=== PATIENT | male | born 1995 | race Two or more races ===

== ENCOUNTER 2018-09-23 02:40 | Emergency (ER) | payer SELFPAY ==
[~2018-09-23 02:40] MED LIST: DIPH-740 PO; depression med
--- NOTE | 2018-09-23 02:51 | ER Report ---
History and Physical Time Seen By MD: 02:51 Hx. of Stated Complaint: PT REPORTS RIGHT SIDED ABDOMINAL PAIN THAT STARTED AROUND 21:40 ABOUT 30 MINUTES AFTER EATING CHICKEN WINGS. HPI/ROS CHIEF COMPLAINT: Epigastric pain, vomiting HISTORY OF PRESENT ILLNESS: 22-year-old male presents to the ER complaining of severe epigastric and right upper quadrant pain and vomiting for several hours. Patient ate hot wings and then became very sick. She notes no diarrhea. Patient describes 9/10 epigastric burning. She took ranitidine without improvement at home. REVIEW OF SYSTEMS: Respiratory: No cough, no dyspnea. Cardiovascular: No chest pain, no palpitations. Gastrointestinal: As above Musculoskeletal: No back pain. Allergies: Coded Allergies: aspirin (Verified Allergy, Intermediate, HIVES, 09/23/18) Home Meds Active Scripts Promethazine Hcl (PROMETHAZINE HCL) 25 Mg Tablet, 25 MG PO Q6H PRN for NAUSEA/VOMITING, #14 TAB Prov:AWILDARAYRAY Mary DO 09/23/18 Ondansetron 4 Mg Odt (ONDANSETRON 4 MG ODT) 4 Mg Tab.rapdis, 4 MG PO Q6H PRN for NAUSEA/VOMITING, #10 TAB Prov:AWILDARAYRAY Hernandez DO 09/23/18 Diphenhydramine Hcl (BENADRYL) 25 Mg Capsule, 25 MG PO Q6-8H, #20 CAPSULE TAKE 1 CAPSULE BY MOUTH EVERY 6 TO 8 HOURS Prov:DEANA BOWEN DO 02/13/15 Reported Medications [depression med] No Conflict Check 02/13/15 Reviewed Nurses Notes: Yes Old Medical Records Reviewed: Yes Hx Smoking: No Smoking Status: Never Smoker Exposure to Second Hand Smoke?: No Constitutional Vital Sign - Last 24 Hours 09/23/18 09/23/18 09/23/18 09/23/18 02:46 02:48 03:00 03:10 Temp 99.0 Pulse 84 97 Resp 16 B/P (MAP) 140/104 140/104 (116) 157/97 (117) Pulse Ox 96 94 O2 Delivery Room Air 09/23/18 09/23/18 09/23/18 09/23/18 03:25 03:30 03:40 04:00 Pulse 104 92 B/P (MAP) 150/66 (94) 141/126 (131) Pulse Ox 96 93 5/809/23/18 09/23/18 09/23/18 04:10 04:25 04:30 04:45 Pulse 93 63 B/P (MAP) 135/70 (91) Pulse Ox 100 99 09/23/18 09/23/18 09/23/18 09/23/18 05:00 05:15 05:20 05:30 Pulse 84 72 75 B/P (MAP) 135/78 (97) 123/76 (92) Pulse Ox 98 98 98 09/23/18 09/23/18 09/23/18 09/23/18 05:35 05:50 05:55 06:00 Pulse 79 83 87 B/P (MAP) 113/78 (90) Pulse Ox 96 95 95 09/23/18 06:10 Pulse 82 Pulse Ox 95 Intake and Output 09/22/18 09/22/18 09/23/18 15:00 23:00 07:00 Intake Total 1000 ml Balance 1000 ml Physical Exam General Appearance: The patient is alert, has no immediate need for airway protection and no current signs of toxicity. Moderate distress. Vital signs stable, afebrile, pulse ox normal HEENT: Pupils equal and round no injection. Oropharynx with moderate erythema Respiratory: Chest is non tender, lungs are clear to auscultation. Cardiac: regular rate and rhythm Gastrointestinal: Abdomen is soft and non tender, no masses, bowel sounds normal. Musculoskeletal: Neck: Neck is supple and non tender. Extremities have full range of motion and are non tender. Skin: No rashes or lesions. DIFFERENTIAL DIAGNOSIS: After history and physical exam differential diagnosis was considered for abdominal pain including but not limited to appendicitis, cholecystitis, gastritis and urinary tract infection. Medical Decision Making Data Points Result Diagram: 09/23/1830909/23/18309 Laboratory Hematology Test 09/23/18 03:10 09/23/18 04:05 Red Blood Count 5.12 M/uL (4.00-5.60) Mean Corpuscular Volume 98.7 fL (80.0-96.0) Mean Corpuscular Hemoglobin 34.7 pg (26.0-33.0) Mean Corpuscular Hemoglobin Concent 35.2 g/dL (32.0-36.0) Red Cell Distribution Width 13.1 % (11.5-14.5) Mean Platelet Volume 6.9 fL (7.2-11.1) Neutrophils (%) (Auto) 90.4 % (39.4-72.5) Lymphocytes (%) (Auto) 6.9 % (17.6-49.6) Monocytes (%) (Auto) 2.4 % (4.1-12.4) Eosinophils (%) (Auto) 0.1 % (0.4-6.7) Basophils (%) (Auto) 0.2 % (0.3-1.4) Nucleated RBC Relative Count (auto) 0.1 /100WBC Neutrophils # (Auto) 12.2 K/uL (2.0-7.4) Lymphocytes # (Auto) 0.9 K/uL (1.3-3.6) Monocytes # (Auto) 0.3 K/uL (0.3-1.0) Eosinophils # (Auto) 0.0 K/uL (0.0-0.5) Basophils # (Auto) 0.0 K/uL (0.0-0.1) Nucleated RBC Absolute Count (auto) 0.01 K/uL Sodium Level 136 mmol/L (137-145) Potassium Level 3.7 mmol/L (3.5-5.0) Chloride Level 99 mmol/L (98-107) Carbon Dioxide Level 27 mmol/L (22-30) Blood Urea Nitrogen 13 mg/dl (9-21) Creatinine 0.60 mg/dl (0.66-1.25) Glomerular Filtration Rate Calc > 60.0 Random Glucose 128 mg/dl (75-110) Calcium Level 9.2 mg/dl (8.4-10.2) Total Bilirubin 1.3 mg/dl (0.2-1.3) Aspartate Amino Transf (AST/SGOT) 29 U/L (0-35) Alanine Aminotransferase (ALT/SGPT) 42 U/L (0-56) Alkaline Phosphatase 120 U/L (0-126) Total Protein 8.2 g/dl (6.3-8.2) Albumin 4.4 g/dl (3.5-5.0) Amylase Level 95 U/L (0-110) Lipase 62 U/L (23-300) Urine Color Straw Urine Clarity Clear Urine pH 7.0 pH (4.8-9.5) Urine Specific [place] 1.008 Urine Protein Negative mg/dL (NEGATIVE) Urine Glucose (UA) Negative mg/dL (NEGATIVE) Urine Ketones Trace mg/dL (NEGATIVE) Urine Blood Negative (NEGATIVE) Urine Nitrite Negative (NEGATIVE) Urine Bilirubin Negative (NEGATIVE) Urine Urobilinogen Negative mg/dL (0.2-1.9) Urine Leukocyte Esterase Negative (NEGATIVE) Urine RBC <1 /HPF (0-2/HPF) Urine WBC <1 /HPF (0-5/HPF) Urine Squamous Epithelial Cells None /LPF (</=FEW) Urine Bacteria Negative /HPF (NONE-FEW) Urine Mucus None /HPF (NONE-FEW) Chemistry Test 09/23/18 03:10 09/23/18 04:05 White Blood Count 13.5 k/uL (4.5-11.0) Red Blood Count 5.12 M/uL (4.00-5.60) Hemoglobin 17.8 g/dL (14.0-18.0) Hematocrit 50.5 % (42.0-52.0) Mean Corpuscular Volume 98.7 fL (80.0-96.0) Mean Corpuscular Hemoglobin 34.7 pg (26.0-33.0) Mean Corpuscular Hemoglobin Concent 35.2 g/dL (32.0-36.0) Red Cell Distribution Width 13.1 % (11.5-14.5) Platelet Count 289 K/uL (150-450) Mean Platelet Volume 6.9 fL (7.2-11.1) Neutrophils (%) (Auto) 90.4 % (39.4-72.5) Lymphocytes (%) (Auto) 6.9 % (17.6-49.6) Monocytes (%) (Auto) 2.4 % (4.1-12.4) Eosinophils (%) (Auto) 0.1 % (0.4-6.7) Basophils (%) (Auto) 0.2 % (0.3-1.4) Nucleated RBC Relative Count (auto) 0.1 /100WBC Neutrophils # (Auto) 12.2 K/uL (2.0-7.4) Lymphocytes # (Auto) 0.9 K/uL (1.3-3.6) Monocytes # (Auto) 0.3 K/uL (0.3-1.0) Eosinophils # (Auto) 0.0 K/uL (0.0-0.5) Basophils # (Auto) 0.0 K/uL (0.0-0.1) Nucleated RBC Absolute Count (auto) 0.01 K/uL Glomerular Filtration Rate Calc > 60.0 Calcium Level 9.2 mg/dl (8.4-10.2) Total Bilirubin 1.3 mg/dl (0.2-1.3) Aspartate Amino Transf (AST/SGOT) 29 U/L (0-35) Alanine Aminotransferase (ALT/SGPT) 42 U/L (0-56) Alkaline Phosphatase 120 U/L (0-126) Total Protein 8.2 g/dl (6.3-8.2) Albumin 4.4 g/dl (3.5-5.0) Amylase Level 95 U/L (0-110) Lipase 62 U/L (23-300) Urine Color Straw Urine Clarity Clear Urine pH 7.0 pH (4.8-9.5) Urine Specific [place] 1.008 Urine Protein Negative mg/dL (NEGATIVE) Urine Glucose (UA) Negative mg/dL (NEGATIVE) Urine Ketones Trace mg/dL (NEGATIVE) Urine Blood Negative (NEGATIVE) Urine Nitrite Negative (NEGATIVE) Urine Bilirubin Negative (NEGATIVE) Urine Urobilinogen Negative mg/dL (0.2-1.9) Urine Leukocyte Esterase Negative (NEGATIVE) Urine RBC <1 /HPF (0-2/HPF) Urine WBC <1 /HPF (0-5/HPF) Urine Squamous Epithelial Cells None /LPF (</=FEW) Urine Bacteria Negative /HPF (NONE-FEW) Urine Mucus None /HPF (NONE-FEW) Urinalysis Test 09/23/18 04:05 Urine Color Straw Urine Clarity Clear Urine pH 7.0 pH (4.8-9.5) Urine Specific [place] 1.008 Urine Protein Negative mg/dL (NEGATIVE) Urine Glucose (UA) Negative mg/dL (NEGATIVE) Urine Ketones Trace mg/dL (NEGATIVE) Urine Blood Negative (NEGATIVE) Urine Nitrite Negative (NEGATIVE) Urine Bilirubin Negative (NEGATIVE) Urine Urobilinogen Negative mg/dL (0.2-1.9) Urine Leukocyte Esterase Negative (NEGATIVE) Urine RBC <1 /HPF (0-2/HPF) Urine WBC <1 /HPF (0-5/HPF) Urine Squamous Epithelial Cells None /LPF (</=FEW) Urine Bacteria Negative /HPF (NONE-FEW) Urine Mucus None /HPF (NONE-FEW) ED Course/Re-evaluation Clinical Indication for ER IV: Hydration, IV Access ED Course Patient was admitted to an examination room. H&P was done. The differential diagnoses was considered. Patient's diagnostic laboratory studies are unremarkable except for a mildly elevated white blood cell count of 13,000. Patient responds well to IV Zofran and Phenergan. He is given a liter fluid. He is given a GI cocktail and Toradol. His pain is completely resolved. He feels much better. He would like to go home. He is given prescription for Zofran and Phenergan to take. He is advised clear liquid diet for 24 hours and advance to Jj diet. Patient advised Tylenol and ibuprofen for pain relief. Decision to Disposition Date: September 23, 2018 Decision to Disposition Time: 04:59 Depart Departure Latest Vital Signs Vital Signs Date Time Temp Pulse Resp B/P (MAP) Pulse Ox O2 Delivery O2 Flow Rate FiO2 09/23/18 06:10 82 95 09/23/18 06:00 113/78 (90) 09/23/18 02:46 99.0 16 Room Air Impression: Primary Impression: Gastritis Additional Impression: Vomiting Condition: Improved Disposition: HOME OR SELF-CARE New Scripts Promethazine Hcl (PROMETHAZINE HCL) 25 Mg Tablet 25 MG PO Q6H PRN for NAUSEA/VOMITING, #14 TAB Prov: RAYRAY KAISER DO 09/23/18 Ondansetron 4 Mg Odt (ONDANSETRON 4 MG ODT) 4 Mg Tab.rapdis 4 MG PO Q6H PRN for NAUSEA/VOMITING, #10 TAB Prov: RAYRAY KAISER DO 09/23/18 Patient Instructions: Clear Liquid Diet (ED), Gastritis (ED) Additional Instructions: Follow clear liquid diet for 24-48 hours, then advance to Jj diet, bananas, rice, applesauce and toast. You can take Prilosec 20 mg per day to reduce her stomach acid Follow-up with primary care if unimproved in 3-5 days. Problem Qualifiers Primary Impression: Gastritis Gastritis type: unspecified gastritis Chronicity: acute Gastritis bleeding: without bleeding Qualified Codes: K29.00 - Acute gastritis without bleeding Additional Impression: Vomiting Vomiting type: unspecified Vomiting Intractability: intractable Nausea presence: with nausea Qualified Codes: R11.2 - Nausea with vomiting, unspecified RAYRAY KAISER DO September 23, 2018 02:51
[2018-09-23] MEDS ORDERED: NS(*) 0.9% 1000 ML BAG 1,000 ML IV ONE (02:56)
[2018-09-23] MEDS ORDERED: PROMETHAZINE 25 MG/ML 1 ML AMP IVP ONE (03:00)
[2018-09-23] MEDS ORDERED: ONDANSETRON 4 MG/2 ML VIAL IVP ONE (03:00)
[2018-09-23 03:17] LABS: PLATELET COUNT, AUTOMATED 289 K/uL (150-450)
[2018-09-23] MEDS ORDERED: LIDOCAINE 2% VISC SLN 15ML UDC PO ONE (03:45)
[2018-09-23] MEDS ORDERED: MAG HYD/AL HYD/SIMETH 30ML UDC PO ONE (03:45)
[2018-09-23] MEDS ORDERED: ONDA4TAB9 PO (03:54)
[2018-09-23] MEDS ORDERED: PROM-110 PO (03:54)
[2018-09-23] MEDS ORDERED: KETOROLAC 30 MG/ML VIAL IVP ONE (04:30)
[2018-09-23] MEDS ORDERED: ONDANSETRON 4 MG ODT TH SL ONE (05:00)
[2018-09-23 06:00] VITALS: BP 113/78
== END 2018-09-23 06:25 | disposition home or self-care (01) ==
LOC: ER 03:00
DX: K29.00 Acute gastritis without bleeding (principal); R11.2 Nausea with vomiting, unspecified
CPT/HCPCS: 81001; 82150; 83690; 85025; 96361; 96374; 96375; 99284; J1885; J2405; J2550; J7030; S0119; 82040; 82247; 82310; 82374; 82435; 82565; 82947; 84075; 84132; 84155; 84295; 84450; 84460; 84520

== ENCOUNTER 2018-09-24 00:19 | Observation (INO) | payer SELFPAY ==
[~2018-09-24] VITALS: Ht 154.9 cm; Wt 65.8 kg
[2018-09-24] VITALS (17 sets, daily range): BP systolic 108–145; BP diastolic 59–94; BMI 27.4
[~2018-09-24 00:19] MED LIST changes: +ONDA4TAB9 PO; +PROM-110 PO
[2018-09-24] MEDS ORDERED: ONDANSETRON 4 MG/2 ML VIAL IVP ONE (00:40)
[2018-09-24] MEDS ORDERED: HYDROMORPHONE HCL 1 MG/ML SYRINGE IVP ONE ×2 (00:40→02:20)
[2018-09-24] MEDS ORDERED: NS(*) 0.9% 1000 ML BAG 1,000 ML IV ONE (00:40)
[2018-09-24] MEDS ORDERED: IOPAMIDOL 76% 150 ML INFUS BTL 150 ML ONE (00:57)
[2018-09-24 01:05] LABS: PLATELET COUNT, AUTOMATED 301 K/uL (150-450)
--- NOTE | 2018-09-24 01:07 | ER Report ---
History and Physical Time Seen By MD: 00:29 HPI/ROS CHIEF COMPLAINT: Abdominal pain HISTORY OF PRESENT ILLNESS: 22-year-old male returns vomiting, complaining of right upper quadrant, right flank pain all day long. Patient was seen here last night in the emergency department, diagnosed with gastritis after eating hot wings. Patient was discharged home on Zofran and Phenergan and a clear liquid diet. Patient describes crampy, sharp pains that come intermittently radiating into his right flank. She notes return of vomiting this evening. REVIEW OF SYSTEMS: Respiratory: No cough, no dyspnea. Cardiovascular: No chest pain, no palpitations. Gastrointestinal: As above Musculoskeletal: No back pain. Allergies: Coded Allergies: aspirin (Verified Allergy, Intermediate, HIVES, 09/23/18) Home Meds Active Scripts Promethazine Hcl (PROMETHAZINE HCL) 25 Mg Tablet, 25 MG PO Q6H PRN for NAUSEA /VOMITING, #14 TAB Prov:AWILDARAYRAY Hernandez DO 09/23/18 Ondansetron 4 Mg Odt (ONDANSETRON 4 MG ODT) 4 Mg Tab.rapdis, 4 MG PO Q6H PRN for NAUSEA/VOMITING, #10 TAB Prov:AWILDARAYRAY DO 09/23/18 Diphenhydramine Hcl (BENADRYL) 25 Mg Capsule, 25 MG PO Q6-8H, #20 CAPSULE TAKE 1 CAPSULE BY MOUTH EVERY 6 TO 8 HOURS Prov:DEANA BOWEN DO 02/13/15 Reported Medications [depression med] No Conflict Check 02/13/15 Reviewed Nurses Notes: Yes Old Medical Records Reviewed: Yes Hx Smoking: No Smoking Status: Never Smoker Exposure to Second Hand Smoke?: No Constitutional Vital Sign - Last 24 Hours 09/24/18 09/24/18 09/24/18 09/24/18 00:29 00:49 01:05 01:34 Temp 98.8 Pulse 84 76 81 Resp 24 B/P (MAP) 139/100 Pulse Ox 93 98 100 O2 Delivery Room Air O2 Flow Rate 2.0 09/24/18 09/24/18 09/24/18 09/24/18 01:49 01:54 01:59 02:09 Pulse 100 95 92 88 Pulse Ox 99 98 97 97 09/24/18 09/24/18 02:14 02:19 Pulse 95 86 Pulse Ox 97 98 Intake and Output 09/23/18 09/23/18 09/24/18 15:00 23:00 07:00 Intake Total 1000 ml Balance 1000 ml Physical Exam General Appearance: The patient is alert, has no immediate need for airway protection and no current signs of toxicity. Vital signs stable, afebrile, pulse ox normal, moderate distress HEENT: Pupils equal and round no injection. TMs normal Respiratory: Chest is non tender, lungs are clear to auscultation. Cardiac: regular rate and rhythm Gastrointestinal: Abdomen is soft, moderate right upper quadrant tenderness, no CVA tenderness, no masses, bowel sounds normal. Musculoskeletal: Neck: Neck is supple and non tender. Extremities have full range of motion and are non tender. Skin: No rashes or lesions. DIFFERENTIAL DIAGNOSIS: After history and physical exam differential diagnosis was considered for abdominal pain including but not limited to appendicitis, cholecystitis, gastritis and urinary tract infection. Medical Decision Making Data Points Result Diagram: 09/24/18 0036 09/24/18 0036 Laboratory Hematology Test 09/24/18 00:36 09/24/18 01:56 Red Blood Count 5.32 M/uL (4.00-5.60) Mean Corpuscular Volume 98.6 fL (80.0-96.0) Mean Corpuscular Hemoglobin 34.6 pg (26.0-33.0) Mean Corpuscular Hemoglobin Concent 35.1 g/dL (32.0-36.0) Red Cell Distribution Width 12.9 % (11.5-14.5) Mean Platelet Volume 7.4 fL (7.2-11.1) Neutrophils (%) (Auto) 80.4 % (39.4-72.5) Lymphocytes (%) (Auto) 11.5 % (17.6-49.6) Monocytes (%) (Auto) 6.6 % (4.1-12.4) Eosinophils (%) (Auto) 0.1 % (0.4-6.7) Basophils (%) (Auto) 1.4 % (0.3-1.4) Nucleated RBC Relative Count (auto) 0.1 /100WBC Neutrophils # (Auto) 12.6 K/uL (2.0-7.4) Lymphocytes # (Auto) 1.8 K/uL (1.3-3.6) Monocytes # (Auto) 1.0 K/uL (0.3-1.0) Eosinophils # (Auto) 0.0 K/uL (0.0-0.5) Basophils # (Auto) 0.2 K/uL (0.0-0.1) Nucleated RBC Absolute Count (auto) 0.01 K/uL Peripheral Blood Smear Yes Y/N Sodium Level 136 mmol/L (137-145) Potassium Level 3.5 mmol/L (3.5-5.0) Chloride Level 96 mmol/L (98-107) Carbon Dioxide Level 31 mmol/L (22-30) Blood Urea Nitrogen 7 mg/dl (9-21) Creatinine 0.60 mg/dl (0.66-1.25) Glomerular Filtration Rate Calc > 60.0 Random Glucose 115 mg/dl (75-110) Calcium Level 9.2 mg/dl (8.4-10.2) Total Bilirubin 1.6 mg/dl (0.2-1.3) Aspartate Amino Transf (AST/SGOT) 26 U/L (0-35) Alanine Aminotransferase (ALT/SGPT) 37 U/L (0-56) Alkaline Phosphatase 109 U/L (0-126) Total Protein 7.9 g/dl (6.3-8.2) Albumin 4.3 g/dl (3.5-5.0) Amylase Level 133 U/L (0-110) Lipase 229 U/L (23-300) Urine Color Straw Urine Clarity Clear Urine pH 8.0 pH (4.8-9.5) Urine Specific [place] 1.027 Urine Protein Negative mg/dL (NEGATIVE) Urine Glucose (UA) Negative mg/dL (NEGATIVE) Urine Ketones Trace mg/dL (NEGATIVE) Urine Blood Negative (NEGATIVE) Urine Nitrite Negative (NEGATIVE) Urine Bilirubin Negative (NEGATIVE) Urine Urobilinogen Negative mg/dL (0.2-1.9) Urine Leukocyte Esterase Negative (NEGATIVE) Urine RBC <1 /HPF (0-2/HPF) Urine WBC None /HPF (0-5/HPF) Urine Squamous Epithelial Cells None /LPF (</=FEW) Urine Bacteria Negative /HPF (NONE-FEW) Urine Mucus None /HPF (NONE-FEW) Chemistry Test 09/24/18 00:36 09/24/18 01:56 White Blood Count 15.7 k/uL (4.5-11.0) Red Blood Count 5.32 M/uL (4.00-5.60) Hemoglobin 18.4 g/dL (14.0-18.0) Hematocrit 52.4 % (42.0-52.0) Mean Corpuscular Volume 98.6 fL (80.0-96.0) Mean Corpuscular Hemoglobin 34.6 pg (26.0-33.0) Mean Corpuscular Hemoglobin Concent 35.1 g/dL (32.0-36.0) Red Cell Distribution Width 12.9 % (11.5-14.5) Platelet Count 301 K/uL (150-450) Mean Platelet Volume 7.4 fL (7.2-11.1) Neutrophils (%) (Auto) 80.4 % (39.4-72.5) Lymphocytes (%) (Auto) 11.5 % (17.6-49.6) Monocytes (%) (Auto) 6.6 % (4.1-12.4) Eosinophils (%) (Auto) 0.1 % (0.4-6.7) Basophils (%) (Auto) 1.4 % (0.3-1.4) Nucleated RBC Relative Count (auto) 0.1 /100WBC Neutrophils # (Auto) 12.6 K/uL (2.0-7.4) Lymphocytes # (Auto) 1.8 K/uL (1.3-3.6) Monocytes # (Auto) 1.0 K/uL (0.3-1.0) Eosinophils # (Auto) 0.0 K/uL (0.0-0.5) Basophils # (Auto) 0.2 K/uL (0.0-0.1) Nucleated RBC Absolute Count (auto) 0.01 K/uL Peripheral Blood Smear Yes Y/N Glomerular Filtration Rate Calc > 60.0 Calcium Level 9.2 mg/dl (8.4-10.2) Total Bilirubin 1.6 mg/dl (0.2-1.3) Aspartate Amino Transf (AST/SGOT) 26 U/L (0-35) Alanine Aminotransferase (ALT/SGPT) 37 U/L (0-56) Alkaline Phosphatase 109 U/L (0-126) Total Protein 7.9 g/dl (6.3-8.2) Albumin 4.3 g/dl (3.5-5.0) Amylase Level 133 U/L (0-110) Lipase 229 U/L (23-300) Urine Color Straw Urine Clarity Clear Urine pH 8.0 pH (4.8-9.5) Urine Specific [place] 1.027 Urine Protein Negative mg/dL (NEGATIVE) Urine Glucose (UA) Negative mg/dL (NEGATIVE) Urine Ketones Trace mg/dL (NEGATIVE) Urine Blood Negative (NEGATIVE) Urine Nitrite Negative (NEGATIVE) Urine Bilirubin Negative (NEGATIVE) Urine Urobilinogen Negative mg/dL (0.2-1.9) Urine Leukocyte Esterase Negative (NEGATIVE) Urine RBC <1 /HPF (0-2/HPF) Urine WBC None /HPF (0-5/HPF) Urine Squamous Epithelial Cells None /LPF (</=FEW) Urine Bacteria Negative /HPF (NONE-FEW) Urine Mucus None /HPF (NONE-FEW) Urinalysis Test 09/24/18 01:56 Urine Color Straw Urine Clarity Clear Urine pH 8.0 pH (4.8-9.5) Urine Specific [place] 1.027 Urine Protein Negative mg/dL (NEGATIVE) Urine Glucose (UA) Negative mg/dL (NEGATIVE) Urine Ketones Trace mg/dL (NEGATIVE) Urine Blood Negative (NEGATIVE) Urine Nitrite Negative (NEGATIVE) Urine Bilirubin Negative (NEGATIVE) Urine Urobilinogen Negative mg/dL (0.2-1.9) Urine Leukocyte Esterase Negative (NEGATIVE) Urine RBC <1 /HPF (0-2/HPF) Urine WBC None /HPF (0-5/HPF) Urine Squamous Epithelial Cells None /LPF (</=FEW) Urine Bacteria Negative /HPF (NONE-FEW) Urine Mucus None /HPF (NONE-FEW) EKG/Imaging Imaging Results: CT scan of the abdomen and pelvis with contrast was obtained. The results of the study are CT of the abdomen and pelvis with contrast: Indication: Right upper quadrant and lower quadrant pain. Technique: Helical CT was performed through the abdomen and pelvis following IV contrast enhancement with 75 cc of Isovue-370. Multiplanar reconstructions are reviewed. One of the following dose optimization techniques was utilized in the performance of this exam: Automated exposure control; adjustment of the mA and/or kV according to the patient's size; or use of an iterative reconstruction technique. Specific details can be referenced in the facility's radiology CT exam operational policy. Comparison: None available. Lower lung yi: There is minimal linear atelectasis at the right base. No evidence of consolidation or pleural effusion. Liver: Normal in size and shape. There is diffuse moderate fatty infiltration. No focal mass lesions are identified. The venous structures appear unremarkable. Gallbladder/biliary tree: Multiple moderate-sized, mixed density calculi are present in the gallbladder lumen. At least one calculus may be stuck in the neck. The gallbladder appears distended, and the wall appears diffusely thickened, compatible with acute cholecystitis. The bile ducts are not dilated. Pancreas: Normal in size, shape, and density. There are no signs of peripancreatic inflammation or fluid. Spleen: Normal in size, shape, and density. Adrenal glands: Within normal limits. Kidneys/urinary bladder: The kidneys appear normal in size, shape, and density. There are no signs of obstructive uropathy. The bladder appears homogeneous and unremarkable. Intestinal structures: Unremarkable, as visualized. There are no of obstruction, focal dilatation, or focal inflammatory changes. The appendix appears normal. Pelvis: There is a small uncomplicated right inguinal hernia. No abnormalities are observed in the true pelvis. Aorta and vascular structures: Within normal limits. Ascites or fluid collections: None seen. Skeletal structures: Orthopedic hardware is present in the proximal femurs. There is minimal scoliosis in the spine. No acute skeletal deformity is identified. Impression: Cholelithiasis and probable acute cholecystitis. Normal appendix. The study was read by the radiologist. I viewed the images myself on the PACS system. ED Course/Re-evaluation Clinical Indication for ER IV: Hydration, IV Access ED Course Patient was admitted to an examination room. H&P was done. The differential diagnoses was considered. On clinical examination. Patient has right upper q uadrant tenderness and epigastric tenderness. Peripheral IV is established. Patient's treated for vomiting and pain with Zofran and Dilaudid. Diagnostic studies are repeated. A CT scan of the abdomen and pelvis is ordered. CT scan shows findings consistent with acute cholecystitis. 09/24/2018 2:12:34 am case discussed with Dr. Hans Ospina, general surgery on- call, who accepts the patient for admission for acute cholecystitis. Holding orders were written. Decision to Disposition Date: September 24, 2018 Decision to Disposition Time: 02:07 Depart Departure Latest Vital Signs Vital Signs Date Time Temp Pulse Resp B/P (MAP) Pulse Ox O2 Delivery O2 Flow Rate FiO2 09/24/18 02:19 86 98 09/24/18 01:05 2.0 09/24/18 00:29 98.8 24 139/100 Room Air Impression: Primary Impression: Acute cholecystitis Condition: Improved Disposition: Admitted from ER RAYRAY KAISER DO September 24, 2018 01:07
--- NOTE | 2018-09-24 02:03 | RADIOLOGY IMAGING REPORT ---
FACILITY: [facility] [place] PATIENT NAME: Jose Storm : 1995 MR: [id number] V: [id number] EXAM DATE: ORDERING PHYSICIAN: RAYRAY KAISER TECHNOLOGIST: Location: [facility] Patient: Jose Storm : 1995 Visit/Account:[id number] Date of Sevice: 09/24/2018 CT of the abdomen and pelvis with contrast: Indication: Right upper quadrant and lower quadrant pain. Technique: Helical CT was performed through the abdomen and pelvis following IV contrast enhancement with 75 cc of Isovue-370. Multiplanar reconstructions are reviewed. One of the following dose optimization techniques was utilized in the performance of this exam: Autom ated exposure control; adjustment of the mA and/or kV according to the patient's size; or use of an i terative reconstruction technique. Specific details can be referenced in the facility's radiology CT exam operational policy. Comparison: None available. Lower lung yi: There is minimal linear atelectasis at the right base. No evidence of consolidatio n or pleural effusion. Liver: Normal in size and shape. There is diffuse moderate fatty infiltration. No focal mass lesions are identified. The venous structures appear unremarkable. Gallbladder/biliary tree: Multiple moderate-sized, mixed density calculi are present in the gallbladd er lumen. At least one calculus may be stuck in the neck. The gallbladder appears distended, and the wall appears diffusely thickened, compatible with acute cholecystitis. The bile ducts are not dilated. Pancreas: Normal in size, shape, and density. There are no signs of peripancreatic inflammation or fl uid. Spleen: Normal in size, shape, and density. Adrenal glands: Within normal limits. Kidneys/urinary bladder: The kidneys appear normal in size, shape, and density. There are no signs of obstructive uropathy. The bladder appears homogeneous and unremarkable. Intestinal structures: Unremarkable, as visualized. There are no of obstruction, focal dilatation, or focal inflammatory changes. The appendix appears normal. Pelvis: There is a small uncomplicated right inguinal hernia. No abnormalities are observed in the tr ue pelvis. Aorta and vascular structures: Within normal limits. Ascites or fluid collections: None seen. Skeletal structures: Orthopedic hardware is present in the proximal femurs. There is minimal scoliosi s in the spine. No acute skeletal deformity is identified. Impression: Cholelithiasis and probable acute cholecystitis. Normal appendix. Report Dictated By: Preet Easley MD at 09/24/2018 1:44 AM Report E-Signed By: Preet Easley MD at 09/24/2018 1:58 AM WSN:[id number]
[2018-09-24] MEDS ORDERED: PIPERACILLIN/TAZO*3.375GM VIAL 3.375 GM in NS(*) 0.9% 100 ML MINI-BAG 100 ML IVPB ONE (02:20)
[2018-09-24] MEDS ORDERED: LR 1000 ML IV PRN (03:20)
[2018-09-24] MEDS: HYDROmorphone* 1 MG/ML 1 MG/ML ML IVP PRN ×6 (03:43→23:45)
[2018-09-24] MEDS ORDERED: FLUSH 10 ML SYR IVP PRN (06:50)
--- NOTE | 2018-09-24 06:53 | Gen Surgery History & Physical ---
History of Present Illness Chief Complaint Abdominal pain History of Present Illness 22yo male with CP presents with 1 day of RUQ/epigastric pain. Started after eating chicken. 1st episode ever. CT c/w acute cholecystitis. No other abdomi nal surgeries. History Problems: (1) Cerebral palsy Status: Chronic (2) Depression Status: Chronic Home Meds Active Scripts Promethazine Hcl (PROMETHAZINE HCL) 25 Mg Tablet, 25 MG PO Q6H PRN for NAUSEA/VOMITING, #14 TAB Prov:AWILDARAYRAY M 09/23/18 Ondansetron 4 Mg Odt (ONDANSETRON 4 MG ODT) 4 Mg Tab.rapdis, 4 MG PO Q6H PRN for NAUSEA/VOMITING, #10 TAB Prov:AWILDARAYRAY Hernandez DO 09/23/18 Diphenhydramine Hcl (BENADRYL) 25 Mg Capsule, 25 MG PO Q6-8H, #20 CAPSULE TAKE 1 CAPSULE BY MOUTH EVERY 6 TO 8 HOURS Prov:DEANA BOWEN DO 02/13/15 Reported Medications [depression med] No Conflict Check 02/13/15 Allergies: Coded Allergies: aspirin (Verified Allergy, Intermediate, HIVES, 09/23/18) Review of Systems All Systems Reviewed/Normal: Yes, Except as Noted Gastrointestinal: Abdominal Pain Exam General Appearance: Alert, Awake, No Acute Distress, Afebrile Neuro: No Gross deficits Eyes: PERRLA GI: Other (Soft, RUQ TTP with Laureano's sign) Extremities: Warm, Perfused Psych: Alert & Oriented X3, Appropriate Mood & Affect Medical Decision Making Data Points Result Diagram: 09/24/18 0036 09/24/18 0036 Assessment and Plan Problems: (1) Acute cholecystitis Status: Acute Assessment & Plan: 09/24/18: Admit, NPO, IV fluids, IV abx, to OR this afternoon for lap jennifer, possible open. I have explained this plan to the patient along with surgery in great detail along with the alternatives and risks. I have explained the risk of conversion to open depending on the degree of inflammation and my ablility to see his anatomy. He indicates his understanding of this discussion and his questions have been answered. He indicates that he would like to proceed with this plan, including surgery. (2) Cerebral palsy Status: Chronic Condition Stable. Time Spent: < 30 min Venous Thromboembolism VTE Risk Physician Assess for VTE Risk: Yes Patient's VTE Risk: Low VTE Diagnostic Test 2 Days Prior to Admit: No Antithrombotics Is Pt On Any Antithrombotics?: No Problem Qualifiers (1) Cerebral palsy: Cerebral palsy type: unspecified type Qualified Codes: G80.9 - Cerebral palsy, unspecified LANDON MILAN MD September 24, 2018 06:53
--- NOTE | 2018-09-24 06:54 | RADIOLOGY IMAGING REPORT ---
FACILITY: [facility] PATIENT NAME: Jose Storm : 1995 MR: [id number] V: [id number] EXAM DATE: ORDERING PHYSICIAN: LANDON MILAN TECHNOLOGIST: Location: [facility] - [place] Patient: Jose Storm : 1995 Visit/Account:[id number] Date of Sevice: 09/24/2018 CHEST PA LAT HISTORY: Preoperative x-ray. COMPARISON: None. CT abdomen and pelvis earlier same date. TECHNIQUE: PA and lateral views of the chest. FINDINGS: Pulmonary/pleura: There is mild right hemidiaphragm elevation. There is mild atelectasis in the bilat eral lower lobes. There is no pneumothorax or pleural effusion. Cardiomediastinal: Cardiac and mediastinal silhouettes are within normal limits. Bones/soft tissues: No acute osseous abnormality. There is slight leftward curvature of the lower tho racic spine. There is slight rightward curvature of the visible lumbar spine. There are scattered, no nspecific air-fluid levels within the abdomen. No free air. IMPRESSION: 1. Mild bibasilar atelectasis. 2. Mild right hemidiaphragm elevation. Report Dictated By: Tania Cabrera at 09/24/2018 6:47 AM Report E-Signed By: Tania Cabrera at 09/24/2018 6:50 AM WSN:[id number]
[2018-09-24] MEDS: PIPERACILLIN/TAZO*3.375GM VIAL 3.375 GM in NS(*) 0.9% 100 ML MINI-BAG 100 ML IVPB SCH ×3 (08:36→21:06)
[2018-09-24] MEDS ORDERED: PANTOPRAZOLE SOD 40 MG IV VIAL IVP SCH (09:00)
[2018-09-24] MEDS ORDERED: PANTOPRAZOLE SOD 40 MG IV VIAL IVP ONE (10:25)
[2018-09-24] MEDS ORDERED: NORMOSOL R SOLN(*) 1000 ML BAG 1,000 ML IV ONE (10:25)
[2018-09-24] MEDS ORDERED: fentaNYL CITR 250 MCG/5 ML AMP ONE (12:53)
[2018-09-24] MEDS ORDERED: LIDOCAINE 2% IV 100 MG/5ML SYR ONE (12:53)
[2018-09-24] MEDS ORDERED: PROPOFOL EMUL(*) 10MG/ML 20 ML 20 ML ONE (12:54)
[2018-09-24] MEDS ORDERED: IOPAMIDOL 61% 75 ML INFUS BTL 75 ML ONE (13:13)
[2018-09-24] MEDS ORDERED: ROPIVACAINE 0.5% 20 ML VIAL ONE (13:13)
[2018-09-24] MEDS ORDERED: DEXAMETHASONE SOD 4 MG/ML VIAL ONE (13:17)
[2018-09-24] MEDS ORDERED: ONDANSETRON 4 MG/2 ML VIAL ONE (13:17)
[2018-09-24] MEDS ORDERED: KETAMINE HCL 200 MG/20 ML MDV ONE (13:18)
--- NOTE | 2018-09-24 15:16 | RADIOLOGY IMAGING REPORT ---
FACILITY: [facility] PATIENT NAME: Jose Storm : 1995 MR: [id number] V: [id number] EXAM DATE: ORDERING PHYSICIAN: LANDON MILAN TECHNOLOGIST: Location: [facility] Patient: Jose Storm : 1995 Visit/Account:[id number] Date of Sevice: 09/24/2018 Exam: CHOLANGIOGRAM OPERATIVE Indication: LAP CHOLEY, RAD Comparison: None available Findings: Fluoroscopy was provided for IOC. Images show normal filling of the intra and extrahepatic bile ducts with drainage into the duodenum. Fluoroscopy time seven seconds DOSE: DAP was 0.214 Gy*cm2. IMPRESSION: Normal IOC Report Dictated By: Po Carreno at 09/24/2018 3:08 PM Report E-Signed By: Po Carreno at 09/24/2018 3:10 PM WSN:[id number]
--- NOTE | 2018-09-24 16:24 | Post Operative Progress Note ---
Post Operative Progress Note Date: September 24, 2018 Time: 16:12 Surgeon: Rashid Dictation number: [id number] Anesthesia: GETA by Dr. Devi Pre-Op Diagnosis: Acute cholecystitis Post-Op Diagnosis: FELIZ Findings: Very inflammed/infected gallbladder, full of stones. Normal IOC Procedure(s): Lap jennifer with IOC Specimen Removed:(May be N/A): GB and contents Complications: None Fluids: See anesthesia record Estimated Blood Loss: 100mL Date OP Note Dictated: September 24, 2018 Time OP Note Dictated: 16:13 LANDON MILAN MD September 24, 2018 16:24
--- NOTE | 2018-09-24 17:50 | OPERATIVE REPORT 1 ---
EVENT DATE: September 24, 2018 SURGEON: Demario Mike MD ANESTHESIOLOGIST: Sunday Devi MD ANESTHESIA: General endotracheal anesthesia. PREOPERATIVE DIAGNOSIS Acute cholecystitis. POSTOPERATIVE DIAGNOSIS Acute cholecystitis. PROCEDURE PERFORMED Laparoscopic cholecystectomy with intraoperative cholangiogram. COMPLICATIONS None. CONDITION Stable. BLOOD LOSS 100 mL. FINDINGS Patient's gallbladder was very inflamed and full of gallstones. His intraoperative cholangiogram was unremarkable and appeared normal with visualization of the common bile duct, common hepatic duct, intrahepatic biliary system, and contrast was observed to flow into the duodenum without any filling defects or resistance. INDICATIONS This is a 22-year-old gentleman who presented to the Emergency Department with right upper quadrant abdominal pain and a CT scan obtained, which was suspicious for cholecystitis. His white blood cell count was in the mid teens. DESCRIPTION OF PROCEDURE Patient was brought to the operating room and placed supine on the operating table. General endotracheal anesthesia was administered by Dr. Devi, and his abdomen was prepped and draped in a sterile fashion. Timeout was completed, and I injected the infraumbilical skin with 0.5% ropivacaine plain. I made a curvilinear smiley face type incision in the infraumbilical rim. I dissected through the dermis and subcutaneous fat, identified the midline fascia, made a vertical incision in the midline fascia, grasped the fascial edges with Nadege clamps, and then bluntly entered the peritoneal cavity with my finger. I placed two interrupted 0 Vicryl sutures transversely through the vertical fascial defect and inserted a 12 mm Melvin-type port through this wound and secured it in place with sutures. I inflated the abdomen to a pressure of 15 mmHg and inserted a 5 mm 30-degree endoscope through this port. Next, under direct visualization, I placed an epigastric 5 mm port and two right upper quadrant 5 mm ports. The patient was placed in reverse Trendelenburg and planed towards his left to move the viscera from the right upper quadrant. There was omentum that had adhered to the gallbladder, and so this was peeled down, and I tried to grasp the fundus of the gallbladder with the wavy atraumatic grasper, but it was too full and inflamed, so I used a decompression needle and sucked out some of the bile to decompress it, and then I was able to grasp it. The fundus was retracted towards the patient's right shoulder. The infundibulum was cleaned off and then grasped and retracted towards the patient's right hip, I used suck electrocautery to divide the peritoneum overlying the infundibulum and up both the medial and lateral aspects of the gallbladder. I then used a combination of electrocautery and [place] dissection to clean off the cystic duct and arteries. These were cleaned off circumferentially and clipped proximally and distally. The arteries were divided between clips. The duct was clipped in the infundibular-cystic duct junction, and then ductotomy was made. Cholangiogram was completed revealing that I was in the cystic duct well away from the common duct structures. I identified the common bile duct and watched contrast flow into the duodenum without any filling defects or resistance. I also observed the common and hepatic ducts and intrahepatic biliary system. After this was completed, the cystic duct was clipped with four clips distal to the ductotomy and then divided between the upper two most clips near the infundibulum, and then the posterior attachments of the gallbladder were divided with electrocautery and from the gallbladder fossa. This took quite some time. Because of all the inflammation, the plane was not clear, and there was quite a bit of oozing from the gallbladder bed. Ultimately, I was able to get it off, and the gallbladder was placed in surgical specimen retrieval bag and removed from the abdomen through the umbilical port site. I irrigated and dried the right upper quadrant and then used electrocautery to gain hemostasis in the gallbladder fossa. I covered the exposed liver parenchyma, and it was no longer oozing with the Surgicel. I then covered the entire gallbladder fossa and down by the clips with Caitlin hemostatic powder. I then placed a 10 mm flat Misbah- Hassan drain in the subhepatic space. This came out through the inferior right upper quadrant port site, and this was secured to the skin with an 0 silk suture. I then removed the remaining ports, desufflated the abdomen, and then closed the umbilical fascia with another running 0 Vicryl suture. I then tied all three of these down with good reapproximation of the fascial edges. I then closed the skin at each port site with 4-0 Monocryl running subcuticular sutures. Skin was cleaned and dried, and Steri-Strips were applied, followed by sterile surgical dressings and a drain dressing. The drain was then connected to the bulb suction. Patient was awakened, extubated in the operating room, and transported to the recovery room in stable condition having tolerated the procedure without any apparent problems. SUMIT
[2018-09-25 03:17] VITALS: BP 107/80
[2018-09-25] MEDS: PIPERACILLIN/TAZO*3.375GM VIAL 3.375 GM in NS(*) 0.9% 100 ML MINI-BAG 100 ML IVPB SCH ×4 (03:23→21:01)
[2018-09-25] MEDS: HYDROmorphone* 1 MG/ML 1 MG/ML ML IVP PRN ×3 (04:49→22:39)
[2018-09-25 06:10] LABS: PLATELET COUNT, AUTOMATED 251 K/uL (150-450)
[2018-09-25 06:42] VITALS: BP 122/88
--- NOTE | 2018-09-25 07:49 | General Surgery Progress Note ---
Subjective Progress Notes Subjective No complaints this morning. Feeling better than before surgery. He does have a notable cough this morning but he reports this is normal for him. Physical Exam Vital Signs Date Time Temp Pulse Resp B/P (MAP) Pulse Ox O2 Delivery O2 Flow Rate FiO2 09/25/18 06:42 98.2 90 12 122/88 (99) 98 Nasal Cannula 3.0 Intake and Output 09/25/18 07:00 Intake Total 2931 ml Output Total 2275 ml Balance 656 ml Intake Oral 700 ml IV Total 2131 ml Other 100 ml Output Urine Total 2250 ml Drainage Total 25 ml # Voids 3 General Appearance: Alert, Awake, No Acute Distress, Afebrile GI: Other (Soft, appropriate postop TTP, dressings C/D/I, MONAE with serosanguinous drainage.) Extremities: Warm, Perfused Result Diagram: 09/25/18 0550 09/25/18 0550 Assessment and Plan Problems: (1) Acute cholecystitis Status: Acute Assessment & Plan: 09/24/18: Admit, NPO, IV fluids, IV abx, to OR this afternoon for lap jennifer, possible open. I have explained this plan to the patient along w ith surgery in great detail along with the alternatives and risks. I have explained the risk of conversion to open depending on the degree of inflammation and my ablility to see his anatomy. He indicates his understanding of this discussion and his questions have been answered. He indicates that he would like to proceed with this plan, including surgery. 09/25/18: POD#1 s/p lap jennifer with gram. Doing better this morning. WBC up a little this morning, likely stress response from surgery, will follow. LFTs coming down. Afebrile and vitals all look good. Will advance to regular diet this morning and stop IV fluids. Continue IV abx for now. Will remove MONAE drain when patient tolerating diet and no bile in drain. (2) Cerebral palsy Status: Chronic Condition Stable. Time Spent: < 30 min Exam Sepsis Risk: Sepsis Risk Problem Qualifiers (1) Cerebral palsy: Cerebral palsy type: unspecified type Qualified Codes: G80.9 - Cerebral palsy, unspecified LANDON MILAN MD September 25, 2018 07:49
[2018-09-25] MEDS ORDERED: buPROPion IR 75 MG TAB PO SCH (09:00)
[2018-09-25] MEDS ORDERED: PANTOPRAZOLE SOD 40 MG TABEC PO SCH (09:00)
[2018-09-25] MEDS ORDERED: DOCUSATE SODIUM 100 MG CAP PO SCH (09:00)
[2018-09-25] MEDS: oxyCODON/ACET (*)5/325MG (CII) 1 TAB TAB PO PRN ×2 (09:11→13:41)
[2018-09-25] MEDS: ONDANSETRON 4 MG/2 ML VIAL IVP PRN ×2 (10:00→17:26)
[2018-09-25 14:39] VITALS: BP 131/94
[2018-09-25 15:02] VITALS: BMI 27.4
[2018-09-25 18:34] VITALS: BP 130/85
[2018-09-25] MEDS: KCL/D1/2NS 20 MEQ 1000 ML 1,000 ML IV SCH (19:35)
[2018-09-25 23:00] VITALS: BP 128/94
[2018-09-26] MEDS: HYDROmorphone* 1 MG/ML 1 MG/ML ML IVP PRN ×6 (02:57→22:08)
[2018-09-26] MEDS: PIPERACILLIN/TAZO*3.375GM VIAL 3.375 GM in NS(*) 0.9% 100 ML MINI-BAG 100 ML IVPB SCH ×4 (02:58→21:19)
[2018-09-26 03:00] VITALS: BP 130/93
[2018-09-26] MEDS: KCL/D1/2NS 20 MEQ 1000 ML 1,000 ML IV SCH ×2 (06:12→17:12)
[2018-09-26 06:51] VITALS: BP 131/80
--- NOTE | 2018-09-26 07:58 | General Surgery Progress Note ---
Subjective Progress Notes Subjective He had several episodes of N/V after advancing his diet yesterday and so I backed his diet down to ice chips. He's now feeling better this morning. Passing flatus. Physical Exam Vital Signs Date Time Temp Pulse Resp B/P (MAP) Pulse Ox O2 Delivery O2 Flow Rate FiO2 09/26/18 06:51 98.4 83 14 131/80 (97) 96 Nasal Cannula 0.5 Intake and Output 09/26/18 07:00 Intake Total 1573 ml Output Total 620 ml Balance 953 ml Intake Oral 245 ml IV Total 1328 ml Oral Regurgitation 300 ml Drainage Total 320 ml # Voids 6 # Emeses 4 General Appearance: Alert, Awake, No Acute Distress, Afebrile GI: Other (Soft, appropriate postop TTP, dressings removed, incisions all look good without erythema or drainage. MONAE with serous drainage.) Extremities: Warm, Perfused Result Diagram: 09/25/18 0550 09/25/18 0550 Assessment and Plan Problems: (1) Acute cholecystitis Status: Acute Assessment & Plan: 09/24/18: Admit, NPO, IV fluids, IV abx, to OR this afternoon for lap jennifer, possible open. I have explained this plan to the patient along with surgery in great detail along with the alternatives and risks. I have explained the risk of conversion to open depending on the degree of inflammation and my ablility to see his anatomy. He indicates his understanding of this dis cussion and his questions have been answered. He indicates that he would like to proceed with this plan, including surgery. 09/25/18: POD#1 s/p lap jennifer with gram. Doing better this morning. WBC up a little this morning, likely stress response from surgery, will follow. LFTs coming down. Afebrile and vitals all look good. Will advance to regular diet this morning and stop IV fluids. Continue IV abx for now. Will remove MONAE drain when patient tolerating diet and no bile in drain. 09/26/18: POD#2. Diet decreased to sips/chips yesterday but he's now doing better. Will try clear diet again. Will removed MONAE after tolerating regular diet if no bile in drain. Continue IV abx today. (2) Cerebral palsy Status: Chronic Condition STable. Time Spent: < 30 min Exam Sepsis Risk: Sepsis Risk Problem Qualifiers (1) Cerebral palsy: Cerebral palsy type: unspecified type Qualified Codes: G80.9 - Cerebral palsy, unspecified LANDON MILAN MD September 26, 2018 07:58
[2018-09-26] MEDS: PANTOPRAZOLE SOD 40 MG IV VIAL IVP SCH (08:16)
--- NOTE | 2018-09-26 09:08 | Antimicrobial Stewardship ---
Antimicrobial Time Out Antimicrobial Stewardship MD Service: Other (SURGERY) Indications: Other (POST OP) Antimicrobial Used ZOSYN 3.375G Start Date: September 24, 2018 Culture Results: N/A Eligible for PO Conversion Eligable for PO Conversion: No (PATIENT NPO UNTIL BOWEL FXN RETURNS) Reviewed with Provider Reviewed w/ Provider on Rounds: No KRYSTIN CURTIS September 26, 2018 09:08
[2018-09-26 15:10] VITALS: BP 122/83
[2018-09-26 18:49] VITALS: BP 113/74
[2018-09-26 23:00] VITALS: BP 120/71
[2018-09-27] MEDS: HYDROmorphone* 1 MG/ML 1 MG/ML ML IVP PRN ×3 (00:30→08:38)
[2018-09-27] MEDS: PIPERACILLIN/TAZO*3.375GM VIAL 3.375 GM in NS(*) 0.9% 100 ML MINI-BAG 100 ML IVPB SCH ×2 (02:59→08:37)
[2018-09-27 05:30] VITALS: BP 127/80
[2018-09-27 05:47] LABS: PLATELET COUNT, AUTOMATED 296 K/uL (150-450)
[2018-09-27 06:48] VITALS: BP 127/83
[2018-09-27] MEDS: KCL/D1/2NS 20 MEQ 1000 ML 1,000 ML IV SCH (08:37)
[2018-09-27] MEDS: PANTOPRAZOLE SOD 40 MG IV VIAL IVP SCH (08:37)
[2018-09-27 08:41] VITALS: Ht 154.9 cm; Wt 65.8 kg
[2018-09-27] MEDS ORDERED: DOCUSATE SODIUM 100 MG CAP PO SCH (11:00)
[2018-09-27] MEDS ORDERED: traMADol 50 MG TAB PO PRN (11:00)
[2018-09-27] MEDS ORDERED: DOCU-202 PO (11:01)
[2018-09-27] MEDS ORDERED: TRAM-420 PO (11:01)
[2018-09-27] MEDS ORDERED: AZIT-17 PO (11:01)
--- NOTE | 2018-09-27 11:06 | Short(Outpt) Discharge Summary ---
Discharge Summary Reason for Hosp/Final Diag: (1) Acute cholecystitis Status: Acute Hospital Course & Plan: 09/24/18: Admit, NPO, IV fluids, IV abx, to OR this afternoon for lap jennifer, possible open. I have explained this plan to the patient along with surgery in great detail along with the alternatives and risks. I have explained the risk of conversion to open depending on the degree of inflammation and my ablility to see his anatomy. He indicates his understanding of this discussion and his questions have been answered. He indicates that he would like to proceed with this plan, including surgery. 09/25/18: POD#1 s/p lap jennifer with gram. Doing better this morning. WBC up a little this morning, likely stress response from surgery, will follow. LFTs coming down. Afebrile and vitals all look good. Will advance to regular diet this morning and stop IV fluids. Continue IV abx for now. Will remove MONAE drain when patient tolerating diet and no bile in drain. 09/26/18: POD#2. Diet decreased to sips/chips yesterday but he's now doing better. Will try clear diet again. Will removed MONAE after tolerating regular diet if no bile in drain. Continue IV abx today. 09/27/18: POD#3. Doing well. Tolerating diet. D/C to home today. (2) Cerebral palsy Status: Chronic Departure Discharge to: Home, Self Care Discharge Instructions Home Meds Active Scripts Azithromycin (Z-PACK) 250 Mg Tablet, 1 TAB PO QDAY, #6 DOSE-PACK 0 Refills Prov:LANDON MILAN MD 09/27/18 Tramadol Hcl (TRAMADOL HCL) 50 Mg Tablet, 1 TAB PO Q4H PRN for PAIN, #15 TAB 0 Refills Prov:LANDON MILAN MD 09/27/18 Docusate Sodium (DOCUSATE SODIUM) 100 Mg Capsule, 1 CAP PO BID, #30 CAPSULE 0 Refills Prov:LANDON MILAN MD 09/27/18 Promethazine Hcl (PROMETHAZINE HCL) 25 Mg Tablet, 25 MG PO Q6H PRN for NAUSEA/VOMITING, #14 TAB Prov:RAYRAY KAISER DO 09/23/18 Ondansetron 4 Mg Odt (ONDANSETRON 4 MG ODT) 4 Mg Tab.rapdis, 4 MG PO Q6H PRN for NAUSEA/VOMITING, #10 TAB Prov:RAYRAY KAISER DO 09/23/18 Diphenhydramine Hcl (BENADRYL) 25 Mg Capsule, 25 MG PO Q6-8H, #20 CAPSULE TAKE 1 CAPSULE BY MOUTH EVERY 6 TO 8 HOURS Prov:DEANA BOWEN DO 02/13/15 Reported Medications [depression med] No Conflict Check 02/13/15 Follow up Referrals: General Surgery - 10/07/18 @ Surgery, General with LANDON MILAN MD You have a follow up appointment scheduled with Dr. Milan on 10/07/18, at 2:30pm. Diet: Regular Activity: As Tolerated Special Instructions: You may remove the dressing on the drain site on 09/28/18, then you can shower. After showering, if the drain site is dry without drainage, you can leave it open to air but if there's some drainage you can cover it with a new dry guaze and change this once every day until there's no further drainage at which time you can leave the site open to air. Problem Qualifiers (1) Cerebral palsy: Cerebral palsy type: unspecified type Qualified Codes: G80.9 - Cerebral palsy, unspecified LANDON MILAN MD September 27, 2018 11:06
[2018-10-02] MEDS ORDERED: BUPR-136 PO (12:19)
== END 2018-09-27 10:58 | disposition home or self-care (01) ==
LOC: ER 00:42 → INTOOBSV 02:20 → MED 02:20
PROVIDERS: ADMIT Surgery; ATTEND Surgery
DX: K81.9 Cholecystitis, unspecified (principal)
CPT/HCPCS: 36415; 47563; 71046; 74177; 74300; 81001; 82150; 82248; 83690; 85025; 88304; 96361; 96374; 99284; C9113; G0378; J1100; J1170; J2001; J2405; J2543; J2704; J2795; J3010; J3480; J3490; J7030; J7120; Q9967; 82040; 82247; 82310; 82374; 82435; 82565; 82947; 84075; 84132; 84155; 84295; 84450; 84460; 84520